=== PATIENT | female | born 1985 | race Caucasian/White ===

== ENCOUNTER 2016-08-26 17:07 | Outpatient (CLI) | payer OTHER ==
[~2016-08-26] VITALS: Ht 162.6 cm; Wt 92.6 kg
[~2016-08-26 17:07] MED LIST: ACET500C5 PO; FERR-31 PO; PREN1TAB49 PO
[2016-08-26 17:20] VITALS: BP 117/62; PULSE 73; RESP 19; Ht 162.6 cm; Wt 92.6 kg
--- NOTE | 2016-08-26 17:45 | RADRPT ---
PROCEDURE: OB ultrasound for biophysical profile CLINICAL INDICATION: Biophysical profile. TECHNIQUE: Multiple sonographic images of the pelvis were obtained. Transabdominal view of the gr avid uterus are available for review. The images were reviewed on a PACS workstation. COMPARISON: None FINDINGS: breathing movement = 2/2 tone = 2/2 motion = 2/2 Quantitative amniotic fluid volume = 2/2 GUANAKO = 17.2 cm Single live intrauterine with cardiac activity at 135 beats per minute. There is a anterior placenta without previa. IMPRESSION: 1. Single living intrauterine gestation in cephalic position. 2. Biophysical profile = 01/27. 3. GUANAKO = 17.2 cm. RPTAT: [facility] Physician Heriberto Date Time Electronically viewed and signed by Mark Gates Physician on 08/26/2016 17:44 /
--- NOTE | 2016-08-26 20:44 | QN ---
Documentation Comment Laborist Dr Burr's pt 31 y.o. A2 with an IUP at 37w1d c/o back pain and leaking. Pt says she had discharge that wet her underwear and went through to her pants. No bleeding. Lots of movement. She has an awareness of contractions but says they are very mild. Pt states the baby has been moving a lot and last week the baby was breech. PMHx: none. PSHx: none. NKDA. BP 117/62 T=97.4. NST: baseline 130 bpm with accels to 180 bpm. UC's q 2-8 minutes. No decels. BPP 8/8. GUANAKO 17.2 cm. VTX. CX 80%/2/-2 by RN, 70%/2/-3/ballotable with palpable membranes. ROM-PLUS test negative. Nitrazine positive. No pooling note on speculum exam by RN. A: IUP @ 37w1d Apparent intact membranes as GUANAKO high with a ballotable head. P: D/C home. Pt instructed to return quickly when does have ROM and to give the nurses a heads up to check her cx and check positioning as she has a lot of fluid and the baby is moving a lot and able to flip over still. CAREY BURGOS MD Aug 26, 2016 20:44
--- NOTE | 2016-08-26 23:13 | TRIAGE ---
OB Triage Datetime Report Generated by CPN: 08/26/2016 23:13 Datetime: 08/26/2016 20:27 Stage of : OB Triage Labor Evaluation Frequency: IRREGULAR Monitor Mode: External Duration (sec)2399: 50-130 Quality: Mild Resting Tone Donnelly: Relaxed Heart Rate FHR Baseline Rate: 110 Monitor Mode: External US Variability: Moderate 6-25 bpm Accelerations: 15X15 Decelerations: None Category: Category I Vaginal Exam Dilatation (cms): 2.0 Effacement (%): 70 Station: -4 Exam By: DR BURGOS Vaginal Bleeding: None Cervix, Position: Posterior Presentation 'A': Cephalic Datetime: 08/26/2016 18:25 Stage of : OB Triage Headache: Denies Breath Sounds, Left: Clear and Equal Breath Sounds, Right: Clear and Equal RUQ Epigastric Pain: Denies Labor Evaluation Frequency: NONE Monitor Mode: External Resting Tone Donnelly: Relaxed Heart Rate FHR Baseline Rate: 125 Monitor Mode: External US Variability: Moderate 6-25 bpm Accelerations: 15X15 Decelerations: None Category: Category I Pain Assessment Pain Presence: None/Denies Pain Type: N/A Membrane Status: Intact Datetime: 08/26/2016 17:32 Headache: Denies Blurred Vision: No Respiratory Effort: Unlabored Breath Sounds, Left: Clear and Equal Breath Sounds, Right: Clear and Equal RUQ Epigastric Pain: Denies Facial Edema: None Labor Evaluation Frequency: NONE Monitor Mode: External Resting Tone Donnelly: Relaxed Heart Rate FHR Baseline Rate: 130 Monitor Mode: External US Variability: Moderate 6-25 bpm Accelerations: 15X15 Decelerations: None Category: Category I Pain Assessment Pain Presence: None/Denies Pain Type: N/A Membrane Status: Intact Datetime: 08/26/2016 17:13 Assessment Type: Triage Maternal Assessment Level of Consciousness: Fully Conscious DTR's/Clonus: DTRs 2+; No Clonus Headache: Denies Blurred Vision: No Respiratory Effort: Unlabored; Regular Rhythm; Equal Expansion Breath Sounds, Left: Clear and Equal Breath Sounds, Right: Clear and Equal Nausea/Vomiting: Denies RUQ Epigastric Pain: Denies Lower Extremities Edema: None Degree: None Upper Extremities Edema: None Degree: None Facial Edema: None Fall Risk Assessment History of Falling: (0) No Secondary Diagnosis: (0) No Ambulatory Aid: (0) Bedrest/Nurse Assist IV Therapy: (0) No Gait: (0) Normal/Bedrest/Immobile Mental Status: (0) Oriented to Own Ability Fall Score: 0 Fall Risk Score Definition: No Risk: No action required Datetime: 08/26/2016 17:03 Time of Arrival: 08/26/2016 17:03 EGA: 37.1 Arrived By: Ambulatory Arrived From: Home Chief Complaint: PT CAME IN C/O SROM SINCE 1530 CELAR FLUID NON-STOP Movement: Present Contractions: Denies/Absent Rupture of Membranes: Unsure Vaginal Discharge: Denies Recent Sexual Intercouse: Denies Abdominal Trauma: Not Applicable Patient Complaints: None Additional Patient Complaints: NONE Provider Notified: PONCHO Initial Plan: MONITOR, VE, NITRAZINE TEST Datetime: 05/20/2016 19:26 EGA: 23.1 Datetime: 05/20/2016 19:24 Fall Score: 0 Fall Risk Score Definition: No Risk: No action required
== END 2016-08-26 20:38 | disposition home or self-care (01) ==
LOC: OBT 17:07 → L-D 17:07 → OBT 20:38
PROVIDERS: ATTEND Obstetrics & Gynecology
DX: O47.1 False labor at or after 37 completed weeks of gestation (principal); Z3A.37 37 weeks gestation of pregnancy
CPT/HCPCS: 76818; 84112; Z7500; G0463

== ENCOUNTER 2016-09-04 13:40 | Outpatient (CLI) | payer OTHER ==
[~2016-09-04] VITALS: Ht 162.6 cm; Wt 94.8 kg
[~2016-09-04 13:40] MED LIST changes: -ACET500C5 PO
[2016-09-04 13:58] VITALS: Ht 162.6 cm; Wt 94.8 kg
[2016-09-04 13:59] VITALS: BP 146/72; PULSE 93; RESP 18
--- NOTE | 2016-09-04 15:34 | RADRPT ---
PROCEDURE: US OB. CLINICAL INDICATION: Pelvic pain TECHNIQUE: Multiple sonographic images of the pelvis were obtained. The images were reviewed on a PACS workstation. COMPARISON: 08/26/2016 FINDINGS: There is a single live intrauterine . cardiac activity is identified at a rate of 13 2 beats per minute. presentation is cephalic. Placenta is anterior grade II. Biophysical profile score is as follows: Breathing 2 Movements 2 Tone 2 Fluid volume 2 Amniotic fluid index = 13.64 Total biophysical profile score = 8/8 IMPRESSION: Biophysical profile score = 8/8 RPTAT: HH .Gonzalo Jorge MD, Date Time Electronically viewed and signed by .Gonzalo Jorge MD, on 09/04/2016 15:34 .W/
--- NOTE | 2016-09-04 16:08 | CONS ---
Date/Time of Note Date/Time of Note DATE: 09/04/16 TIME: 16:03 Consultation Date/Type/Reason Admit Date/Time September 04, 2016 OB triage consult Initial Consult Date 29 This patient is a 31 years old 5 para 3 1 . All her deliveries spontaneous vaginal.Her EDC is September 15, 2016 with which makes her 38 weeks and 3 days. Patient came in triage area complaining of suprapubic and lower abdominal pressure since morning. No report of vaginal bleeding On examination her ear nose throat appears to be normal ,neck is normal no neck vein distention no thyromegaly no lymph node enlargement anywhere in the body .her chest is clear to auscultation Abdomen is soft, occasional mild contractions. Fetus appears to be in vertex presentation, heart tone looks normal on tracing ,there is no deceleration . On pelvic examination the cervix was about 2 cm dilated ,50% effaced and at -2 station with no evidence of rupture of membrane On ultrasound study her biophysical profile was 8/8 with GUANAKO of 13.6. Placenta was anterior and grade 2 with no evidence of previa or low-lying . 24 HR Interval Summary Subjective hx not possible: pt critical Constitutional: No chills, No diaphoresis, No disoriented, No febrile, No improved, No no complaints, No other, No poor po, No requiring IVF, No requiring O2 Detailed Summary Eyes: other (Occasional lower abdominal and suprapubic area pressure), No discharge, No no complaints, No pain, No redness, No visual change ENT: No bleeding, No congestion, No discharge, No dysphagia, No no complaints, No other, No pain, No sore throat Respiratory: No cough, No no complaints, No other, No pain, No pleuritic pain, No shortness of breath, No sputum, No wheezing Cardiovascular: No chest pain, No edema, No lightheadedness, No no complaints, No orthopenea, No other, No palpitations, No paroxysmal nocturnal dyspnea Gastrointestinal: No blood, No constipation, No decreased appetite, No diarrhea , No flatus, No nausea, No no complaints, No other, No pain, No passing stool, No vomiting Genitourinary: other (As I mentioned her cervix was 2 cm 50% effaced head at - 2 station), No bleeding, No discharge, No dysuria, No flank pain, No hematuria, No no complaints Musculoskeletal: No back pain, No bone/joint pain, No neck pain, No no complaints, No other, No restricted range of motion, No swelling Skin: No bruising, No erythema, No laceration, No no complaints, No other, No pruritis, No rash, No skin lesions Neurologic: No confusion, No dizziness, No focal-weakness, No headache, No no complaints, No other, No seizure, No syncope Exam/Review of Systems Vital Signs Vitals Vital Signs Date Time Temp Pulse Resp B/P Pulse Ox O2 Delivery O2 Flow Rate FiO2 09/04/16 13:59 97.8 93 18 146/72 97 Room Air JOHNATHAN HERNADEZ MD Sep 04, 2016 16:08
--- NOTE | 2016-09-04 16:20 | TRIAGE ---
OB Triage Datetime Report Generated by CPN: 09/04/2016 16:19 Datetime: 09/04/2016 15:53 Stage of : OB Triage Maternal Assessment Level of Consciousness: Fully Conscious DTR's/Clonus: DTRs 2+; No Clonus Headache: Denies Breath Sounds, Left: Clear and Equal Breath Sounds, Right: Clear and Equal Nausea/Vomiting: Denies RUQ Epigastric Pain: Denies Monitor Mode: External Resting Tone Mcgill: Relaxed Heart Rate FHR Baseline Rate: 125 Monitor Mode: External US FHR Baseline Changes: No Baseline Change Variability: Moderate 6-25 bpm Accelerations: initial strip Category: Category I Pain Assessment Pain Scale: 3 Pain Presence: Constant Pain Type: Pressure Pain Location: Abdomen Pain Goal: 3 Pain Relief Measures: Comfort Measures Datetime: 09/04/2016 15:30 Stage of : OB Triage Maternal Assessment Level of Consciousness: Fully Conscious DTR's/Clonus: DTRs 2+; No Clonus Headache: Denies Breath Sounds, Left: Clear and Equal Breath Sounds, Right: Clear and Equal Nausea/Vomiting: Denies RUQ Epigastric Pain: Denies Monitor Mode: External Resting Tone Mcgill: Relaxed Heart Rate FHR Baseline Rate: 125 Monitor Mode: External US FHR Baseline Changes: No Baseline Change Variability: Moderate 6-25 bpm Accelerations: initial strip Category: Category I Pain Assessment Pain Scale: 3 Pain Presence: Constant Pain Type: Pressure Pain Location: Abdomen Pain Goal: 3 Pain Relief Measures: Comfort Measures Datetime: 09/04/2016 14:52 Stage of : OB Triage Maternal Assessment Level of Consciousness: Fully Conscious DTR's/Clonus: DTRs 2+; No Clonus Headache: Denies Breath Sounds, Left: Clear and Equal Breath Sounds, Right: Clear and Equal Nausea/Vomiting: Denies RUQ Epigastric Pain: Denies Monitor Mode: External Resting Tone Mcgill: Relaxed Heart Rate FHR Baseline Rate: 125 Monitor Mode: External US FHR Baseline Changes: No Baseline Change Variability: Moderate 6-25 bpm Accelerations: initial strip Category: Category I Pain Assessment Pain Scale: 3 Pain Presence: Constant Pain Type: Pressure Pain Location: Abdomen Pain Goal: 3 Pain Relief Measures: Comfort Measures Datetime: 09/04/2016 13:52 Stage of : OB Triage Maternal Assessment Level of Consciousness: Fully Conscious DTR's/Clonus: DTRs 2+; No Clonus Headache: Denies Blurred Vision: No Respiratory Effort: Unlabored; Regular Rhythm; Equal Expansion Breath Sounds, Left: Clear and Equal Breath Sounds, Right: Clear and Equal Nausea/Vomiting: Denies RUQ Epigastric Pain: Denies Lower Extremities Edema: Bilateral Lower Extremities Degree: 1+ Upper Extremities Edema: None Degree: None Facial Edema: None Temperature Route: Axillary Fall Risk Assessment History of Falling: (0) No Secondary Diagnosis: (0) No Ambulatory Aid: (0) Bedrest/Nurse Assist IV Therapy: (0) No Gait: (0) Normal/Bedrest/Immobile Mental Status: (0) Oriented to Own Ability Fall Score: 0 Fall Risk Score Definition: No Risk: No action required Labor Evaluation Frequency: irr Monitor Mode: External Quality: Mild Resting Tone Mcgill: Relaxed Heart Rate FHR Baseline Rate: 125 Monitor Mode: External US FHR Baseline Changes: No Baseline Change Variability: Moderate 6-25 bpm Accelerations: initial strip Pain Presence: Constant Pain Type: Pressure Pain Location: Abdomen (Annotations: lower) Pain Relief Measures: Comfort Measures Vaginal Exam Dilatation (cms): 2.0 Effacement (%): 50 Station: -2 Exam By: Jeremy green Membrane Status: Intact Datetime: 09/04/2016 13:47 Time of Arrival: 09/04/2016 13:41 EGA: 38.3 Arrived By: Wheelchair Arrived From: Home Chief Complaint: severe supra pubic pressure and decreased movements Movement: Decreased Contractions: Irregular Time Contractions Began: 09/04/2016 12:00 Rupture of Membranes: Denies Vaginal Bleeding: None Vaginal Discharge: Denies Recent Sexual Intercouse: Yes Abdominal Trauma: Not Applicable Patient Complaints: Cramping; Other Initial Plan: sve/bpp/ efm Datetime: 09/04/2016 13:38 Time of Arrival: 09/04/2016 13:38 EGA: 38.3 Arrived By: Wheelchair Arrived From: Home Chief Complaint: PT CAM EIN C/O UC'S AND PELVIC PRESSURE. PT STATES THAT IT HURTS WHEN SHE WALKS. DENIES ANY OTHER PROBLEM Movement: Present Contractions: Denies/Absent Additional Patient Complaints: NONE Time Provider Notified: 09/04/2016 13:50 Provider Notified: PONCHO Initial Plan: NST AND BPP, VE Datetime: 08/26/2016 17:13 Fall Score: 0 Fall Risk Score Definition: No Risk: No action required Datetime: 08/26/2016 17:03 EGA: 37.1 Datetime: 05/20/2016 19:26 EGA: 23.1 Datetime: 05/20/2016 19:24 Fall Score: 0 Fall Risk Score Definition: No Risk: No action required
== END 2016-09-04 16:00 | disposition home or self-care (01) ==
LOC: OBT 13:40 → L-D 13:41 → OBT 16:00
PROVIDERS: ATTEND Obstetrics & Gynecology
DX: O47.1 False labor at or after 37 completed weeks of gestation (principal); Z3A.38 38 weeks gestation of pregnancy
CPT/HCPCS: 76818; Z7500; G0463

== ENCOUNTER 2016-09-09 16:30 | Inpatient (IN) | payer OTHER ==
[~2016-09-09] VITALS: Ht 162.6 cm; Wt 93.7 kg
[2016-09-09] MEDS ORDERED: CALC600T5 PO (16:38)
[2016-09-09 16:51] VITALS: BP 122/69; PULSE 88; RESP 18
[2016-09-09] MEDS ORDERED: DEXTROSE 5%-LR 1,000 ML IV SCH (17:30)
--- NOTE | 2016-09-09 17:42 | RADRPT ---
PROCEDURE: OB ultrasound for biophysical profile CLINICAL INDICATION: Decreased movement TECHNIQUE: Multiple sonographic images of the pelvis were obtained. Transabdominal view of the gr avid uterus are available for review. The images were reviewed on a PACS workstation. COMPARISON: OB ultrasound 09/04/2016 FINDINGS: breathing movement = 2/2 tone = 2/2 motion = 2/2 GUANAKO = 2/2 GUANAKO = 15.8 cm Single live intrauterine with cardiac activity. heart rate equals 125 beats p er minute. Presentation is cephalic. The placenta is anterior. IMPRESSION: 1. Single viable intrauterine gestation. 2. Biophysical profile = 8/8. 3. GUANAKO = 15.8 cm. RPTAT: [facility] .Martin Hurley MD, MD Date Time Electronically viewed and signed by .Martin Hurley MD, MD on 09/09/2016 17:42 .B/
--- NOTE | 2016-09-09 18:38 | TRIAGE ---
OB Triage Datetime Report Generated by CPN: 09/09/2016 18:37 Datetime: 09/09/2016 18:34 Labor Evaluation Frequency: 2-15 Monitor Mode: External Duration (sec)2399: 50-80 Quality: Mild Pattern: Normal: <= 5 Contractions in 10 Minutes Resting Tone Witt: Relaxed Heart Rate FHR Baseline Rate: 120 FHR Baseline Changes: No Baseline Change Variability: Moderate 6-25 bpm Accelerations: 15X15 Datetime: 09/09/2016 17:20 Labor Evaluation Frequency: x2 Monitor Mode: External Duration (sec)2399: 60-80 Quality: Mild Pattern: Normal: <= 5 Contractions in 10 Minutes Resting Tone Witt: Relaxed Heart Rate FHR Baseline Rate: 120 Monitor Mode: External US FHR Baseline Changes: No Baseline Change Variability: Moderate 6-25 bpm Accelerations: 15X15 Datetime: 09/09/2016 16:59 Vaginal Exam Dilatation (cms): 1.5 Effacement (%): 50 Station: -3 Exam By: CKUNIYOSHI Vaginal Bleeding: None Cervix, Consistency: Moderate Cervix, Position: Posterior Datetime: 09/09/2016 16:47 Time of Arrival: 09/09/2016 16:27 EGA: 39.1 Arrived By: Ambulatory Arrived From: Home Chief Complaint: PELVIC PRESSURE Movement: Present Rupture of Membranes: Denies Vaginal Bleeding: None Vaginal Discharge: Denies Recent Sexual Intercouse: Denies Abdominal Trauma: Not Applicable Patient Complaints: Other Time Provider Notified: 09/09/2016 17:05 Provider Notified: DR. ISAAC Initial Plan: EFM x2, SVE, BPP, D5LR VIA IV Datetime: 09/09/2016 16:44 Stage of : OB Triage Maternal Assessment Level of Consciousness: Fully Conscious Headache: Denies Blurred Vision: No Respiratory Effort: Unlabored; Regular Rhythm; Equal Expansion Breath Sounds, Left: Clear and Equal Breath Sounds, Right: Clear and Equal Nausea/Vomiting: Denies RUQ Epigastric Pain: Denies Lower Extremities Edema: None Degree: None Upper Extremities Edema: None Degree: None Facial Edema: None Temperature Route: Oral Fall Risk Assessment History of Falling: (0) No Secondary Diagnosis: (0) No Ambulatory Aid: (0) Bedrest/Nurse Assist IV Therapy: (0) No Gait: (0) Normal/Bedrest/Immobile Mental Status: (0) Oriented to Own Ability Fall Score: 0 Fall Risk Score Definition: No Risk: No action required Pain Assessment Pain Scale: 8 (Annotations: PT REPORTS 10/10 WHEN STANDING) Pain Presence: Constant Pain Type: Sharp Pain Location: Right Hip; Left Hip Datetime: 09/04/2016 13:52 Fall Score: 0 Fall Risk Score Definition: No Risk: No action required Datetime: 09/04/2016 13:47 EGA: 38.3 Datetime: 09/04/2016 13:38 EGA: 38.3 Datetime: 08/26/2016 17:13 Fall Score: 0 Fall Risk Score Definition: No Risk: No action required Datetime: 08/26/2016 17:03 EGA: 37.1 Datetime: 05/20/2016 19:26 EGA: 23.1 Datetime: 05/20/2016 19:24 Fall Score: 0 Fall Risk Score Definition: No Risk: No action required
[2016-09-09] MEDS ORDERED: LACTATED RINGER'S 1,000 ML IV PRN (18:52)
[2016-09-09] MEDS ORDERED: AMPICILLIN 2 GM/NS (PMX) 100 ML IV ONE (19:00)
[2016-09-09] MEDS ORDERED: IBUPROFEN 600 MG TAB PO PRN (19:00)
[2016-09-09] MEDS ORDERED: CARBOPROST 250 MCG INJ IM PRN (19:00)
[2016-09-09] MEDS ORDERED: BUTORPHANOL 2 MG INJ IV PRN ×2 (19:00)
[2016-09-09] MEDS ORDERED: MISOPROSTOL 200 MCG TAB PR PRN (19:00)
[2016-09-09] MEDS ORDERED: OXYTOCIN 30 UNITS/LR 500 ML IV PRN (19:00)
[2016-09-09] MEDS ORDERED: LIDOCAINE 1% (MPF) 30 ML INJ INJ PRN (19:00)
[2016-09-09] MEDS ORDERED: OXYTOCIN 30 UNITS/LR 500 ML IV SCH ×3 (19:00)
[2016-09-09] MEDS ORDERED: METHYLERGONOVINE 0.2 MG INJ IM PRN (19:00)
[2016-09-09] MEDS ORDERED: OXYCODONE/ASPIRIN (4.88/325) TAB PO PRN (19:00)
[2016-09-09] MEDS: DEXTROSE 5%-LR 1,000 ML IV PRN ×2 (19:10→20:17)
[2016-09-09 20:36] LABS: ADD SCAN DIFF NO
[2016-09-09 20:37] LABS: BASOPHILS % 0.3 % (0.0-2.0); EOSINOPHILS # 0.1 10^3/ul (0.0-0.5); EOSINOPHILS % 0.8 % (0.0-7.0); HEMATOCRIT 35.3 % (37.0-47.0); LYMPHOCYTES # 2.3 10^3/ul (0.8-2.9); MEAN CORPUSCULAR HEMOGLOBIN 30.5 pg (29.0-33.0); MEAN CORPUSCULAR VOLUME 89.8 fl (82.0-101.0); MEAN PLATELET VOLUME 10.3 fl (7.4-10.4); MONOCYTE # 0.5 10^3/ul (0.3-0.9); MONOCYTES % 4.2 % (0.0-11.0); NEUTROPHIL # 8.9 10^3/ul (1.6-7.5); NEUTROPHILS % 74.8 % (39.0-77.0); PLATELET COUNT 279 10^3/UL (140-415); RED BLOOD COUNT 3.93 10^6/ul (4.20-5.40); RED CELL DISTRIBUTION WIDTH 13.2 % (11.5-14.5); WHITE BLOOD COUNT 11.9 10^3/ul (4.8-10.8)
[2016-09-09 20:48] LABS: INR 0.92; PROTIME 12.4 Sec (12.2-14.2)
[2016-09-09 20:49] LABS: PARTIAL THROMBOPLASTIN TIME 26.1 Sec (25.0-35.0)
[2016-09-09] MEDS ORDERED: CITRIC ACID/NA CITRATE 30 ML CUP PO ONE (23:00)
[2016-09-10] MEDS: AMPICILLIN 1 GM/NS (PMX) 50 ML IV SCH ×4 (01:01→13:56)
[2016-09-10 03:21] LABS: CANNABINOIDS Negative (NEGATIVE)
[2016-09-10 04:00] LABS: BARBITURATES Negative (NEGATIVE); BENZODIAZEPINES Negative (NEGATIVE); COCAINE Negative (NEGATIVE); OPIATES Negative (NEGATIVE)
[2016-09-10] MEDS: LACTATED RINGER'S 1,000 ML IV SCH ×3 (05:01→11:45)
[2016-09-10] MEDS ORDERED: EPHEDrine SULFATE 50 MG/5 ML SYG IV PRN (06:00)
[2016-09-10] MEDS ORDERED: NALOXONE (0.4 MG/ML) INJ IV PRN (06:00)
[2016-09-10] MEDS ORDERED: ONDANSETRON 4 MG INJ IV PRN ×2 (06:00→16:30)
[2016-09-10] MEDS ORDERED: FENTAnyl 2MCG/ML-ROPIV 0.2% 100 ML BAG EPI SCH (06:00)
--- NOTE | 2016-09-10 16:18 | LDN ---
Date/Time of Note Date/Time of Note DATE: 09/10/16 TIME: 16:13 Delivery Summary Pt pushed under epidural anesthesia to an of a liveborn 3590g female infant with Apgars of 9/9 under epidural anesthesia. Easy delivery of the head from ASH using a Ritgen maneuver 2/2 FHR in the 60s. Delivery of the head was followed by the anterior and posterior shoulders and the remainder of the body. The infant was placed on mother's abdomen and bulb suctioned 2/2 being vigorous in the setting of light meconium. Standard IV Oxytocin was administered. Delayed cord clamping was observed x>1 min and the cord was then doubly clamped and cut by the FOB. Cord blood was collected. An intact 3VC placenta then spontaneously delivered without difficulty. The fundus was noted to be firm and the perineum and vagina were intact. A rectal exam was performed and the rectal mucosa was intact as well. Pt and infant recovering in LDR. EBL 250ml. RT was called to delivery and present at the time of delivery, however was not needed 2/2 vigorous crying at . Placenta Delivered: Spontaneously Meconium: Light Episiotomy: No Anesthesia type: Epidural Estimated blood loss: 250 Sponge & Needle done & correct: Yes All needle counts correct: Yes Any foreign bodies felt in the: No Problems: Delivery Information Sex Sex: female Apgars 1 Minute: 9 5 Minute: 9 Suctioning Nose & mouth suctioned at ny: No Delee suction performed: No Umbilical Cord Umbilical cord with: 3 Vessels Cord presentations: no nuchal cord Cord Blood was obtained: Yes Mother & Baby Disposition Disposition Mom & Baby to Maternity; Good: Yes Baby to NICU: No MORENITA OWENS MD Sep 10, 2016 16:17
[2016-09-10] MEDS ORDERED: LANOLIN 7 GM TUBE TOP PRN (16:30)
[2016-09-10] MEDS ORDERED: MISOPROSTOL 200 MCG TAB PR PRN (16:30)
[2016-09-10] MEDS ORDERED: OXYTOCIN 30 UNITS/LR 500 ML IV PRN (16:30)
[2016-09-10] MEDS ORDERED: SENNA/DOCUSATE NA (8.6MG/50MG) TAB PO PRN (16:30)
[2016-09-10] MEDS ORDERED: METHYLERGONOVINE 0.2 MG INJ IM PRN (16:30)
[2016-09-10] MEDS ORDERED: CARBOPROST 250 MCG INJ IM PRN (16:30)
[2016-09-10] MEDS ORDERED: ACETAMINOPHEN 325 MG TAB PO PRN (16:30)
[2016-09-10] MEDS ORDERED: DIPHENHYDRAMINE 50 MG INJ IV PRN (16:30)
[2016-09-10] MEDS ORDERED: BENZOCAINE 20% 56 ML SPRAY TOP PRN (16:30)
[2016-09-10] MEDS ORDERED: DIBUCAINE 1% 30 GM OINT PR PRN (16:30)
--- NOTE | 2016-09-10 16:38 | CONS ---
Date/Time of Note Date/Time of Note DATE: 09/10/16 TIME: 16:24 Consultation Date/Type/Reason Admit Date/Time Sep 09, 2016 at 18:34 Triage OB consult Reason for Consultation This patient is a 31 years old 6 para 3 therapeutic 2 with living child of 3 she had 3 spontaneous vaginal delivery. She came to triage area complaining of perineal pressure as well as low back and low movement for 3 days. In reviewing her past history as I mentioned she had 3 spontaneous vaginal delivery her EDC was September 16, 1999 which makes her 39 weeks and 1 day. Reviewing her history she does not have any known allergy no surgeries or major medical problems in the past on exam and her ear nose throat was normal was normal no vein distention no thyromegaly Chest port was clear normal sinus rhythm no murmur. Abdomen soft she was having occasional contrast heart tone was around 115- 120 early on . she did show decreased variability no axillary however with hydration the acceleration appear lack of variability improved her. Vital signs were normal blood pressure 122/69 pulse rate 88 respiration 18 temperature 97.8 and oxygen saturation 98. On pelvic examination cervix was 1-2 cm 50% effaced -3 station due to her complaint of low movement biophysical profile was performed which the report was 01/27 the GUANAKO was reported 15.8 cm. Although patient was not in active labor but she was interested in being induced for delivery and she was kept in the hospital for augmentation and delivery of dictation thank you Constitutional: No chills, No diaphoresis, No disoriented, No febrile, No improved, No no complaints, No other, No poor po, No requiring IVF, No requiring O2 Eyes: No discharge, No no complaints, No other, No pain, No redness, No visual change ENT: No bleeding, No congestion, No discharge, No dysphagia, No no complaints, No other, No pain, No sore throat Respiratory: No cough, No no complaints, No other, No pain, No pleuritic pain, No shortness of breath, No sputum, No wheezing Cardiovascular: No chest pain, No edema, No lightheadedness, No no complaints, No orthopenea, No other, No palpitations, No paroxysmal nocturnal dyspnea Gastrointestinal: No blood, No constipation, No decreased appetite, No diarrhea , No flatus, No nausea, No no complaints, No other, No pain, No passing stool, No vomiting Genitourinary: other (On pelvic exam she was 1-2 cm dilated 50% effaced and -3 head. Amniotic membrane was intact), No bleeding, No discharge, No dysuria, No flank pain, No hematuria, No no complaints Musculoskeletal: back pain, bone/joint pain, neck pain, no complaints, other, restricted range of motion, swelling Skin: No bruising, No erythema, No laceration, No no complaints, No other, No pruritis, No rash, No skin lesions Lymphatic: No adenopathy, No lymphadema, No no complaints, No other, No tender nodes Social History Smoking Status: Never smoker Exam/Review of Systems Vital Signs Vitals Vital Signs Date Time Temp Pulse Resp B/P Pulse Ox O2 Delivery O2 Flow Rate FiO2 09/09/16 16:51 97.8 88 18 122/69 98 Room Air Intake and Output 09/09/16 09/09/16 09/10/16 15:00 23:00 07:00 Intake Total 350 ml 2080.5 ml Output Total 700 ml 150 ml Balance -350 ml 1930.5 ml Results Result Diagram: 09/09/16 1900 Results 24 hrs Laboratory Tests Test 09/09/16 18:30 09/09/16 19:00 Urine Opiates Screen Negative Urine Barbiturates Negative Urine Amphetamines Screen Negative Urine Benzodiazepines Screen Negative Urine Cocaine Screen Negative Urine Cannabinoids Negative White Blood Count 11.9 H Red Blood Count 3.93 L Hemoglobin 12.0 Hematocrit 35.3 L Mean Corpuscular Volume 89.8 Mean Corpuscular Hemoglobin 30.5 Mean Corpuscular Hemoglobin Concent 34.0 Red Cell Distribution Width 13.2 Platelet Count 279 Mean Platelet Volume 10.3 # Neutrophils % 74.8 Lymphocytes % 19.0 Monocytes % 4.2 Eosinophils % 0.8 Basophils % 0.3 Nucleated Red Blood Cells % 0.0 Neutrophils # 8.9 H Lymphocytes # 2.3 Monocytes # 0.5 Eosinophils # 0.1 Basophils # 0.0 Nucleated Red Blood Cells # 0.0 Prothrombin Time 12.4 Prothrombin Time Ratio 1.0 INR International Normalized Ratio 0.92 Activated Partial Thromboplast Time 26.1 Hepatitis B Surface Antigen NEGATIVE Medications Medications Current Medications Naloxone HCl (Narcan) 0.1 mg Q2M PRN IV FOR RESP RATE 8 OR LESS; Start at 06:00; Stop 09/11/16 at 05:59 Ondansetron HCl (Zofran Inj) 4 mg Q6H PRN IV NAUSEA AND/OR VOMITING; Start at 06:00; Stop 09/11/16 at 05:59 Ephedrine Sulfate 5 mg 5 mg PRN PRN IV BLOOD PRESSURE SUPPORT; Start 09/10/16 at 06:00 Lactated Ringer's (Lr) 1,000 ml @ 125 mls/hr Q8H IV* ; Start 09/10/16 at 16:17 ; Status UNV Ibuprofen (Motrin) 600 mg Q6 PO ; Start 09/10/16 at 18:00; Status UNV Ondansetron HCl (Zofran Inj) 4 mg Q6H PRN IV NAUSEA AND/OR VOMITING; Start at 16:30; Status UNV Diphenhydramine HCl (Benadryl) 25 mg Q6H PRN IV PRURITUS; Start 09/10/16 at 16: 30; Status UNV Senna/Docusate Sodium (Senokot-S) 1 tab BID PRN PO CONSTIPATION; Start at 16:30; Status UNV Diphtheria/ Tetanus/Acell Pertussis (Adacel) 0.5 ml ONCE ONCE IM* ; Start at 09:00; Stop 09/12/16 at 09:01; Status UNV Acetaminophen 650 mg 650 mg Q4H PRN PO ELEVATED TEMPERATURE; Start 09/10/16 at 16:30 Oxytocin/Lactated Ringer's 500 ml @ 0 mls/hr ONCE PRN IV For Hemorrhage Management; Start 09/10/16 at 16:30; Status UNV Methylergonovine Maleate (Methergine) 0.2 mg ONCE PRN IM VAGINAL BLEEDING; Start 09/10/16 at 16:30; Status UNV Carboprost Tromethamine (Hemabate) 250 mcg ONCE PRN IM VAGINAL BLEEDING; Start 09/10/16 at 16:30; Status UNV Misoprostol (Cytotec) 1,000 mcg ONCE PRN KS VAGINAL BLEEDING; Start 09/10/16 at 16:30; Status UNV JOHNATHAN HERNADEZ MD Sep 10, 2016 16:35
[2016-09-10 17:00] VITALS: BP 106/59; PULSE 77; RESP 18
[2016-09-10] MEDS: IBUPROFEN 600 MG TAB PO SCH ×2 (17:39→23:31)
[2016-09-10] MEDS: LACTATED RINGER'S 1,000 ML IV* SCH (19:05)
[2016-09-10 19:35] VITALS: BP 114/57; PULSE 76; RESP 19
[2016-09-10 23:30] VITALS: BP 91/51; PULSE 86; RESP 18
[2016-09-11] MEDS: LACTATED RINGER'S 1,000 ML IV* SCH (00:17)
[2016-09-11 04:15] VITALS: BP 111/64; PULSE 82; RESP 19
[2016-09-11] MEDS: IBUPROFEN 600 MG TAB PO SCH ×3 (05:56→17:29)
[2016-09-11 08:00] VITALS: BP 116/72; PULSE 90; RESP 20
[2016-09-11 08:11] LABS: ADD SCAN DIFF NO
[2016-09-11 08:20] LABS: BASOPHILS % 0.2 % (0.0-2.0); EOSINOPHILS # 0.1 10^3/ul (0.0-0.5); HEMATOCRIT 36.2 % (37.0-47.0); LYMPHOCYTES # 2.1 10^3/ul (0.8-2.9); LYMPHOCYTES % 16.7 % (15.0-51.0); MEAN CORPUSCULAR HEMOGLOBIN 30.2 pg (29.0-33.0); MEAN CORPUSCULAR HGB CONC 33.1 g/dl (32.0-37.0); MEAN PLATELET VOLUME 10.4 fl (7.4-10.4); MONOCYTE # 0.6 10^3/ul (0.3-0.9); MONOCYTES % 5.1 % (0.0-11.0); NEUTROPHIL # 9.5 10^3/ul (1.6-7.5); PLATELET COUNT 255 10^3/UL (140-415); RED BLOOD COUNT 3.98 10^6/ul (4.20-5.40); RED CELL DISTRIBUTION WIDTH 13.5 % (11.5-14.5); WHITE BLOOD COUNT 12.5 10^3/ul (4.8-10.8)
--- NOTE | 2016-09-11 09:30 | PN ---
Date/Time of Note Date/Time of Note DATE: 09/11/16 TIME: 09:29 OB Subjective Subjective Subjective September 11, 2016 1 hospital visit Patient is doing well, Ambulatory She is afebrile Abdomen is soft , Fundus is firm Moderate amount of lochia Breasts are soft, Nipples are intact No calf tenderness. Perineum is healing well. Breast feeding the new born. Laboratory Tests Test 09/11/16 07:30 White Blood Count 12.510^3/ul Red Blood Count 3.9810^6/ul Hemoglobin 12.0g/dl Hematocrit 36.2% Mean Corpuscular Volume 91.0fl Mean Corpuscular Hemoglobin 30.2pg Mean Corpuscular Hemoglobin Concent 33.1g/dl Red Cell Distribution Width 13.5% Platelet Count 67050^3/UL Mean Platelet Volume 10.4fl Neutrophils % 76.0% Lymphocytes % 16.7% Monocytes % 5.1% Eosinophils % 1.0% Basophils % 0.2% Nucleated Red Blood Cells % 0.0/100WBC Neutrophils # 9.510^3/ul Lymphocytes # 2.110^3/ul Monocytes # 0.610^3/ul Eosinophils # 0.110^3/ul Basophils # 0.010^3/ul Nucleated Red Blood Cells # 0.010^3/ul Current Medications Medications (Trade) Dose Ordered Sig/Mikal Route PRN Reason Start Time Stop Time Status Last Admin Dose Admin Dextrose/Lactated Ringer's 1,000 ml @ 125 mls/hr Q8H IV 09/09/16 17:30 09/09/16 18:55 DC Lactated Ringer's 1,000 ml @ 125 mls/hr Q8H IV 09/09/16 18:52 09/10/16 16:21 DC 09/10/16 11:45 Dextrose/Lactated Ringer's 1,000 ml @ 125 mls/hr Q8H PRN IV FHT MINIMAL VARIABILITY 09/09/16 18:52 09/10/16 16:21 DC 09/09/16 20:17 Ampicillin 100 ml @ 100 mls/hr ONCE ONCE IV 09/09/16 19:00 09/09/16 19:59 DC 09/09/16 20:40 Ampicillin 50 ml @ 100 mls/hr Q4H IV 09/09/16 22:30 09/10/16 16:21 DC 09/10/16 13:56 Oxytocin/Lactated Ringer's 500 ml @ 0 mls/hr TITRATE IV 09/09/16 19:00 09/10/16 16:21 DC 09/10/16 00:20 Butorphanol Tartrate (Stadol) 1 mg Q2H PRN IV PAIN 09/09/16 19:00 09/10/16 16:21 DC Butorphanol Tartrate (Stadol) 2 mg Q2H PRN IV PAIN 09/09/16 19:00 09/10/16 16:21 DC Lidocaine 30 ml 30 ml ONCE PRN INJ EPISIOTOMY/TEARING 09/09/16 19:00 09/10/16 16:21 DC Oxytocin/Lactated Ringer's 500 ml @ 0 mls/hr ONCE -MAY REPEAT X1 IV 09/09/16 19:00 09/10/16 16:21 DC Oxytocin/Lactated Ringer's 500 ml @ 125 mls/hr ONCE IV 09/09/16 19:00 09/10/16 16:20 DC 09/10/16 15:19 Ibuprofen (Motrin) 600 mg ONCE PRN PO Mild Pain (Pain Score 1-3) 09/09/16 19:00 09/10/16 16:20 DC Oxycodone/Aspirin 2 tab 2 tab ONCE PRN PO Moderate to Severe Pain (4-10) 09/09/16 19:00 09/10/16 16:20 DC Lactated Ringer's 1,000 ml @ 2,000 mls/hr Q30M PRN IV PRE-EPIDURAL BOLUS 09/09/16 18:52 09/10/16 16:20 DC Oxytocin/Lactated Ringer's 500 ml @ 0 mls/hr ONCE PRN IV For Hemorrhage Management 09/09/16 19:00 09/10/16 16:20 DC Methylergonovine Maleate (Methergine) 0.2 mg ONCE PRN IM VAGINAL BLEEDING 09/09/16 19:00 09/10/16 16:20 DC Carboprost Tromethamine (Hemabate) 250 mcg ONCE PRN IM VAGINAL BLEEDING 09/09/16 19:00 09/10/16 16:20 DC Misoprostol (Cytotec) 1,000 mcg ONCE PRN [place] VAGINAL BLEEDING 09/09/16 19:00 09/10/16 16:20 DC Citric Acid/ Sodium Citrate (Bicitra) 30 ml ONCE ONCE PO 09/09/16 23:00 09/09/16 23:01 DC 09/09/16 22:58 Naloxone HCl (Narcan) 0.1 mg Q2M PRN IV FOR RESP RATE 8 OR LESS 09/10/16 06:00 09/11/16 05:59 DC Ondansetron HCl (Zofran Inj) 4 mg Q6H PRN IV NAUSEA AND/OR VOMITING 09/10/16 06:00 09/11/16 05:59 DC Fentanyl/ Ropivacaine 100 ml EPIDURAL INFUSION EPI 09/10/16 06:00 Ephedrine Sulfate 5 mg 5 mg PRN PRN IV BLOOD PRESSURE SUPPORT 09/10/16 06:00 Lactated Ringer's (Lr) 1,000 ml @ 125 mls/hr Q8H IV* 09/10/16 16:17 09/10/16 19:05 Ibuprofen (Motrin) 600 mg Q6 PO 09/10/16 18:00 09/11/16 05:56 Ondansetron HCl (Zofran Inj) 4 mg Q6H PRN IV NAUSEA AND/OR VOMITING 09/10/16 16:30 Diphenhydramine HCl (Benadryl) 25 mg Q6H PRN IV PRURITUS 09/10/16 16:30 09/10/16 16:39 Senna/Docusate Sodium (Senokot-S) 1 tab BID PRN PO CONSTIPATION 09/10/16 16:30 Benzocaine (Dermoplast [place]) 1 spray BEDSIDE MEDICATION PRN TOP HEMORRHOID/EPISIOTMY PAIN 09/10/16 16:30 09/10/16 17:40 Dibucaine (Nupercainal) 1 applic BEDSIDE MEDICATION PRN [place] HEMORRHOID/EPISIOTMY PAIN 09/10/16 16:30 Lanolin (Oxf-G-Vtxedi) 1 applic BEDSIDE MEDICATION PRN TOP BEDSIDE FOR LORIN TO NIPPLES 09/10/16 16:30 09/10/16 17:40 Diphtheria/ Tetanus/Acell Pertussis (Adacel) 0.5 ml ONCE ONCE IM* 09/12/16 09:00 09/12/16 09:01 Acetaminophen 650 mg 650 mg Q4H PRN PO ELEVATED TEMPERATURE 09/10/16 16:30 Oxytocin/Lactated Ringer's 500 ml @ 0 mls/hr ONCE PRN IV For Hemorrhage Management 09/10/16 16:30 Methylergonovine Maleate (Methergine) 0.2 mg ONCE PRN IM VAGINAL BLEEDING 09/10/16 16:30 Carboprost Tromethamine (Hemabate) 250 mcg ONCE PRN IM VAGINAL BLEEDING 09/10/16 16:30 Misoprostol (Cytotec) 1,000 mcg ONCE PRN [place] VAGINAL BLEEDING 09/10/16 16:30 JOHNATHAN HERNADEZ MD Sep 11, 2016 09:30
[2016-09-11 15:30] VITALS: BP 114/68; PULSE 74; RESP 16
[2016-09-11 20:00] VITALS: BP 119/77; PULSE 81; RESP 20
[2016-09-12] MEDS: IBUPROFEN 600 MG TAB PO SCH ×3 (00:56→11:23)
[2016-09-12 04:45] VITALS: BP 114/69; PULSE 87; RESP 18
[2016-09-12 07:45] VITALS: BP 120/82; PULSE 80; RESP 20
[2016-09-12] MEDS ORDERED: DIPHTH/TET/ACEL PERTUSS (ADULT) 0.5 ML VIAL IM* ONE (09:00)
--- NOTE | 2016-09-12 14:01 | PD.PPDC ---
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
--- NOTE | 2016-09-12 14:05 | DS ---
Date/Time of Note Date/Time of Note DATE: 09/12/16 TIME: 14:03 Obstetrical Discharge Record Final Diagnosis Final Diagnosis: Term delivered Vaginal Delivery Obstetrical Delivery: Spontaneous Condition on Discharge Physical Assessment Last Vitals: day 2 Afebrile vital signs stable abdomen uterus firm lochia normal extremity normal patient discharged home with follow-up instructions to be seen at the office in 2 weeks Voiding: Yes Bowel Movement: Yes Breast: Soft, non-tender, Filling Fundus: Firm Calf Tenderness: No Patient Condition: Good DECLAN ISAAC MD Sep 12, 2016 14:05
== END 2016-09-12 15:10 | disposition home or self-care (01) | DRG 775 ==
LOC: OBT 16:30 → L-D 16:31 → OBT 18:33 → L-D 18:34 → PP1 09-10 16:58
PROVIDERS: ADMIT Obstetrics & Gynecology; ATTEND Obstetrics & Gynecology
PROC: 10E0XZZ Delivery of Products of Conception, External Approach (ICD-10-PCS; principal; 2016-09-10)
DX: O99.214 Obesity complicating childbirth (principal); E66.01 Morbid (severe) obesity due to excess calories; Z68.35 Body mass index [BMI] 35.0-35.9, adult; Z3A.39 39 weeks gestation of pregnancy; Z37.0 Single live birth
CPT/HCPCS: 62319; 76818; 80307; 85025; 85610; 85730; 86592; 86900; 86901; 87340; 90715; 99464; A4310; G0463; J0290; J1200; J2590; J3010; J7120; J7121